=== PATIENT | female | born 1990 | race Caucasian/White ===

== ENCOUNTER → 2016-09-07 | Outpatient (CLI) | payer SELFPAY ==
[2016-09-07 20:21] LABS: Varicella zoster IgG Interp POSITIVE (NEGATIVE); Varicella zoster IgG Result 3.1 AI
== END | disposition home or self-care (01) ==
LOC: LABWHC1 15:18
PROVIDERS: ATTEND Internal Medicine Critical Care Medicine
DX: Z09 Encounter for follow-up examination after completed treatment for conditions other than malignant neoplasm (principal); Z86.19 Personal history of other infectious and parasitic diseases
CPT/HCPCS: 36415; 86787

== ENCOUNTER → 2017-12-06 | Outpatient (CLI) | payer MEDICAID | END | disposition home or self-care (01) | LOC: LABWHC1 12:14 | PROVIDERS: ATTEND Internal Medicine Critical Care Medicine | DX: N91.2 Amenorrhea, unspecified (principal) | CPT/HCPCS: 36415; 84702 ==

== ENCOUNTER 2018-01-23 14:21 | Day surgery (SDC) | payer MEDICAID ==
[2018-01-23] MEDS ORDERED: LACTATED RINGERS 1,000 ML IV ONE ×2 (15:01→17:34)
[2018-01-23] MEDS ORDERED: ONDANSETRON 4 MG/2 ML VIAL IVP ONE (15:18)
[2018-01-23] MEDS ORDERED: DEXAMETHASONE SOD PHOS (MDV) 100 MG/10 ML VIAL IV ONE (15:19)
[2018-01-23] MEDS ORDERED: KETOROLAC 30 MG/ML 1 ML VIAL ONE (16:26)
[2018-01-23] MEDS ORDERED: PROPOFOL 10 MG/ML 20 ML VIAL IV ONE (16:26)
[2018-01-23] MEDS ORDERED: MIDAZOLAM 2 MG/2 ML VIAL ONE (16:26)
[2018-01-23] MEDS ORDERED: METHYLERGONOVINE 0.2 MG/ML 1 ML AMP ONE (16:26)
[2018-01-23] MEDS ORDERED: LIDOCAINE 1% INJ 10MG/ML (20 ML MDV) ONE (16:26)
[2018-01-23] MEDS ORDERED: fentaNYL (PF) 50 MCG/ML 2 ML AMP ONE (16:26)
[2018-01-23] MEDS ORDERED: SILVER NITRATE APPLICATOR 1 EACH STICK..EA. TOPICAL ONE ×2 (16:49)
[2018-01-23 17:08] VITALS: TEMP 97.9
[2018-01-23 17:18] VITALS: RESP 18
--- NOTE | 2018-01-23 17:19 | P.OP ---
Date of Procedure: 01/23/18 Preoperative Diagnosis: missed Ab Postoperative Diagnosis: same Procedure(s) Performed: Suction D&C Anesthesia: MAC Surgeon: Susan Patel Estimated Blood Loss (ml): 10 IV fluids (ml): 500 Urine output (ml): 25 Pathology: other (Uterine contents) Condition: stable Disposition: PACU Indications for Procedure: Missed AB 8 weeks 05/27, Rh+ blood Operative Findings: Moderate amount of products of conception Description of Procedure: Patient was seen in the office today ultrasound confirmed missed AB of 8 weeks/ days. Patient is known Rh+. Patient was discussed options for treatment expectant versus surgical intervention patient elected surgical intervention. Patient presented to the hospital informed consent was obtained in the preoperative area. Patient was taken to the operating suite and general anesthesia was obtained without difficulty by the anesthesia department. She was then prepped and draped in the normal sterile fashion in the dorsal lithotomy position. A red rubber catheter was then used to drain the bladder clear yellow urine. A weighted speculum was placed in the posterior vaginal vault intralipids the cervix is visualized and grasped with a single-tooth tenaculum. The endocervical canal was then dilated to 18-Czech and an 8 mm curved curette was placed through the cervix and toward the endometrial cavity a moderate amount of products of conception was cleared from the endometrial cavity. A sharp curettage was then performed until gritty texture was noted in all 4 quadrants of the endometrial cavity. The curette was placed once again in no further products of conception were noted on suction. Afterwards the single-tooth tenaculum was taken off of the anterior lip of the cervix minimal bleeding was noted no bleeding from the cervix was visualized. Next WERE correct 2 patient tolerated procedure well was taken to the recovery room awake in stable condition.
[2018-01-23 17:58] VITALS: BP 111/75; PULSE 72
[2018-01-24] MEDS ORDERED: Pre Op ABX Message 1 EACH MISC MISCELLANE ONE (05:00)
== END 2018-01-23 18:32 | disposition home or self-care (01) ==
LOC: OR 14:21
PROVIDERS: ATTEND Obstetrics & Gynecology Obstetrics
DX: O02.1 Missed abortion (principal); E28.2 Polycystic ovarian syndrome
CPT/HCPCS: 59820; J2250; J2210; J2405; J2001; J3010; J1885; J1100; J2704; 86850; 86900; 86901; 88305

== ENCOUNTER → 2018-01-23 | Outpatient (CLI) | payer MEDICAID ==
[2018-01-23 12:09] LABS: Basophils % (A) 1 %; Eosinophils # (A) 0.1 k/uL (0-0.7); Eosinophils % (A) 1 %; HCT 39.8 % (34.0-46.0); HGB 13.6 gm/dL (11.4-16.0); Lymphocytes # (A) 1.6 k/uL (1.0-4.8); Lymphocytes % (A) 32 %; MCH 29.4 pg (25.0-35.0); MCHC 34.1 g/dL (31.0-37.0); MCV 86.1 fL (80.0-100.0); Mean Platelet Volume 6.8; Monocytes # (A) 0.3 k/uL (0-1.0); Monocytes % (A) 6 %; Neutrophils # (A) 2.9 k/uL (1.3-7.7); Neutrophils % (A) 58 %; Platelet Count 305 k/uL (150-450); RBC 4.63 m/uL (3.80-5.40); RDW 12.8 % (11.5-15.5); WBC 5.1 k/uL (3.8-10.6)
== END | disposition home or self-care (01) ==
LOC: LABPAT 10:23
PROVIDERS: ATTEND Obstetrics & Gynecology Obstetrics
DX: Z01.812 Encounter for preprocedural laboratory examination (principal); O03.9 Complete or unspecified spontaneous abortion without complication
CPT/HCPCS: 36415; 85025; 86850; 86900; 86901

== ENCOUNTER → 2018-02-23 | Outpatient (CLI) | payer MEDICAID | LOC: LABWHC1 15:26 | PROVIDERS: ATTEND Obstetrics & Gynecology Obstetrics | DX: O02.1 Missed abortion (principal) | CPT/HCPCS: 36415; 84702 ==

== ENCOUNTER → 2018-03-02 | Outpatient (CLI) | payer MEDICAID | LOC: LABWHC1 13:36 | PROVIDERS: ATTEND Internal Medicine Critical Care Medicine | DX: T78.40XA Allergy, unspecified, initial encounter (principal) | CPT/HCPCS: 36415; 82785; 85008 ==

== ENCOUNTER → 2018-11-12 | Outpatient (CLI) | payer OTHER ==
[2018-11-12 13:33] LABS: Glucose 3 Hour, Gest 45 mg/dL
== END | disposition home or self-care (01) ==
LOC: LABWHC1 07:02
PROVIDERS: ATTEND Obstetrics & Gynecology Obstetrics
DX: O99.810 Abnormal glucose complicating pregnancy (principal); Z3A.00 Weeks of gestation of pregnancy not specified
CPT/HCPCS: 36415; 82951; 82952

== ENCOUNTER 2019-01-14 05:59 | Inpatient (IN) | payer OTHER ==
[2019-01-14] MEDS ORDERED: TERBUTALINE 1 MG/ML VIAL SQ PRN (06:04)
[2019-01-14] MEDS ORDERED: LIDOCAINE 0.5% (PF) 5 MG/ML (50 ML SDV) SQ PRN (06:04)
[2019-01-14] MEDS ORDERED: OXYTOCIN 10 UNIT/ML 1 ML VIAL IM PRN (06:04)
[2019-01-14] MEDS ORDERED: CARBOPROST TROMETHAMINE 250 MCG/ML 1 ML AMP IM PRN (06:04)
[2019-01-14] MEDS ORDERED: METHYLERGONOVINE 0.2 MG/ML 1 ML AMP IM PRN (06:04)
[2019-01-14] MEDS: LACTATED RINGERS 1,000 ML IV SCH ×2 (06:13→13:36)
[2019-01-14] MEDS ORDERED: OXYTOCIN 30 UNITS/500 ML NS 30 UNIT in SALINE 1 500ML.BAG IV SCH (06:15)
[2019-01-14 06:23] LABS: Basophils # (A) 0.1 k/uL (0-0.2); Basophils % (A) 1 %; Eosinophils # (A) 0.1 k/uL (0-0.7); Eosinophils % (A) 1 %; HCT 36.4 % (34.0-46.0); HGB 12.5 gm/dL (11.4-16.0); Lymphocytes % (A) 35 %; MCH 29.1 pg (25.0-35.0); MCHC 34.4 g/dL (31.0-37.0); MCV 84.6 fL (80.0-100.0); Mean Platelet Volume 6.2; Monocytes # (A) 0.4 k/uL (0-1.0); Monocytes % (A) 5 %; Neutrophils # (A) 4.8 k/uL (1.3-7.7); Neutrophils % (A) 57 %; Platelet Count 330 k/uL (150-450); RBC 4.31 m/uL (3.80-5.40); RDW 13.2 % (11.5-15.5); WBC 8.5 k/uL (3.8-10.6)
[2019-01-14 06:34] VITALS: BMI 29.0
[2019-01-14] MEDS ORDERED: BUTORPHANOL 1 MG/ML 1 ML VIAL IM PRN (12:33)
[2019-01-14] MEDS ORDERED: SODIUM CHLORIDE 0.9% 100 ML BAG ONE (15:15)
[2019-01-14] MEDS ORDERED: fentaNYL (PF) 50 MCG/ML 5 ML AMP ONE (15:15)
[2019-01-14] MEDS ORDERED: ROPIVACAINE 5MG/ML 20ML VIAL ONE (15:15)
[2019-01-14] MEDS ORDERED: ACETAMINOPHEN TAB 325 MG TAB PO PRN (17:09)
[2019-01-14] MEDS ORDERED: IBUPROFEN 600 MG TAB PO PRN (17:09)
[2019-01-14] MEDS ORDERED: ZOLPIDEM 5 MG TAB PO PRN (17:09)
[2019-01-14] MEDS ORDERED: WITCH HAZEL 1 EACH MED..PAD TOPICAL PRN (17:09)
[2019-01-14] MEDS ORDERED: HYDROcodone/APAP 5-325MG 1 EACH TAB PO PRN (17:09)
[2019-01-14] MEDS ORDERED: BENZOCAINE/MENTHOL SPRAY 1 GM/SPRAY AEROSOL TOPICAL PRN (17:09)
[2019-01-14] MEDS ORDERED: diphenhydrAMINE 25 MG CAP PO PRN (17:09)
[2019-01-14] MEDS ORDERED: LANOLIN CREAM 5 GM TUBE TOPICAL PRN (17:09)
[2019-01-14] MEDS ORDERED: diphenhydrAMINE 50 MG CAP PO PRN (17:09)
[2019-01-14] MEDS ORDERED: diphenhydrAMINE 50 MG/ML 1 ML VIAL IVP PRN ×2 (17:09)
[2019-01-14] MEDS ORDERED: SIMETHICONE 80 MG CHEWABLE PO PRN (17:09)
[2019-01-14] MEDS ORDERED: HYDROCORTISONE 2.5% RECTAL CREAM 30 GM TUBE RECTAL PRN (17:09)
[2019-01-14] MEDS ORDERED: PRENATAL VIT-IRON-FOLIC ACID 1 EACH CAP PO ONE (17:15)
[2019-01-14] MEDS ORDERED: OXYTOCIN 20 UNITS/1000 ML NS 1,000 ML IV SCH (17:15)
--- NOTE | 2019-01-14 17:18 | P.HPOB ---
History of Present Illness H&P Date: 01/14/19 Chief Complaint: IUP @ 40 0/7 weeks Review of Systems Constitutional: Denies chills, Denies fatigue, Denies fever Ears, nose, mouth and throat: Denies headache Cardiovascular: Reports leg edema Respiratory: Denies dyspnea Gastrointestinal: Denies constipation, Denies diarrhea, Denies nausea, Denies vomiting Genitourinary: Reports Past Medical History Additional Past Medical History / Comment(s): POLYCYSTIC OVARY DISEASE History of Any Multi-Drug Resistant Organisms: None Reported Additional Past Surgical History / Comment(s): B/L EAR TUBES X2 Past Anesthesia/Blood Transfusion Reactions: No Reported Reaction Past Psychological History: No Psychological Hx Reported Smoking Status: Never smoker - Past Family History Mother Family Medical History: No Reported History Medications and Allergies Home Medications Medication Instructions Recorded Confirmed Type Pnv No.95/Ferrous Fum/Folic AC 1 tab PO ONCE 01/14/19 01/14/19 History [ Multivitamin Tablet] Allergies Allergy/AdvReac Type Severity Reaction Status Date / Time gluten AdvReac Unknown Verified 01/14/19 06:04 Milk Containing Products AdvReac Unknown Verified 01/14/19 06:04 [Dairy] soy AdvReac Unknown Verified 01/14/19 06:04 wheat AdvReac Unknown Verified 01/14/19 06:04 Exam Osteopathic Statement: *. No significant issues noted on an osteopathic structural exam other than those noted in the History and Physical/Consult. Vital Signs Temp Pulse Resp BP Pulse Ox 01/14/19 06:02 97.3 F L 78 16 125/88 100 Intake and Output 01/14/19 01/14/19 01/14/19 06:59 14:59 22:59 Other: Weight 74.389 kg Targeted physical exam is performed in the same general this is a well-nourished well-developed female in no acute distress, breathing is noted to nonlabored heart has regular rate and rhythm abdomen is gravid and appropriate for gestational age, heart tones returned be category 1 and she is brendan every 3 minutes. On cervical exam she was noted to be 2/80/-2 and amniotomy is performed clear fluid was obtained without difficulty. Results Result Diagrams: 01/14/19 06:10 Assessment and Plan (1) Term Current Visit: Yes Status: Acute Code(s): Z34.90 - ENCNTR FOR SUPRVSN OF NORMAL , UNSP, UNSP TRIMESTER SNOMED Code(s): 40255517 Plan: Patient is admitted to labor and delivery for Pitocin induction of labor. Pitocin started per protocol. Patient does desire epidural anesthesia is notified. Anticipate spontaneous vaginal delivery later today.
--- NOTE | 2019-01-14 17:41 | P.PROBDLV ---
Vaginal Delivery Note - . Vaginal Delivery Note: This is a pleasant 28-year-old 2 para 0010 at 40-0/7 weeks that presented to labor and delivery for induction of labor. Patient was started on Pitocin per hospital protocol. Patient underwent amniotomy and clear fluid was obtained. Patient became uncomfortable requested epidural placement this was placed by the anesthesia without difficulty. Patient progressed to complete began pushing and had a normal spontaneous vaginal delivery of a viable male at 1652, weight of 8 lbs. 1 oz. with Apgars of 9-9 at one and 5 minutes respectively. During delivery a midline episiotomy was performed this was inspected and no extension was noted. After two-minute delay the umbilical cord was doubly clamped and cut and the placenta was delivered spontaneously intact with a three-vessel cord being noted. The midline episiotomy was repaired with 3-0 Rapide in the usual fashion. Uterus was noted to be firm and below the umbilicus at this time lochia was noted to be moderate. Inspection of the patient's laceration after repair noted hemostasis, rectal exam was performed and noted to be intact with no abnormalities EBL 300 cc Patient and tolerated delivery well and are resting comfortably.
[2019-01-14] MEDS: SENNOSIDES-DOCUSATE SODIUM 1 EACH TAB PO SCH (20:29)
[2019-01-15 07:49] LABS: Basophils # (A) 0.2 k/uL (0-0.2); Basophils % (A) 1 %; Eosinophils # (A) 0.1 k/uL (0-0.7); Eosinophils % (A) 1 %; HCT 32.3 % (34.0-46.0); Lymphocytes # (A) 2.9 k/uL (1.0-4.8); Lymphocytes % (A) 21 %; MCH 29.2 pg (25.0-35.0); MCHC 34.2 g/dL (31.0-37.0); MCV 85.4 fL (80.0-100.0); Mean Platelet Volume 7.1; Monocytes # (A) 0.6 k/uL (0-1.0); Monocytes % (A) 4 %; Neutrophils # (A) 9.8 k/uL (1.3-7.7); Neutrophils % (A) 72 %; Platelet Count 274 k/uL (150-450); RBC 3.78 m/uL (3.80-5.40); RDW 13.5 % (11.5-15.5); WBC 13.6 k/uL (3.8-10.6)
[2019-01-15 08:52] VITALS: RESP 16
[2019-01-15] MEDS: SENNOSIDES-DOCUSATE SODIUM 1 EACH TAB PO SCH (08:52)
--- NOTE | 2019-01-15 09:51 | P.DS ---
Providers Date of admission: 01/14/19 05:59 Expected date of discharge: 01/15/19 Attending physician: Susan Patel Primary care physician: Stated None - Discharge Diagnosis(es) (1) Term Current Visit: Yes Status: Acute (2) Status post vaginal delivery Current Visit: Yes Status: Acute Hospital Course: This is a pleasant 28-year-old 2 para 0010 at 40-0/7 weeks that presented to labor and delivery for induction of labor. Patient had routine care that was essentially uncomplicated. Patient was admitted and Pitocin was started per hospital protocol. Patient progressed through labor eventually becoming uncomfortable requesting epidural placement. Epidural was placed by the anesthesia department. She quickly progressed to complete began pushing and had a normal spontaneous vaginal delivery of a viable male infant at 1652, weight of 8 lbs. 1 oz. with Apgars of 9 and 9 at one and 5 minutes respectively. During the delivery a midline episiotomy was performed, as it appeared she was going to tear superiorly toward the urethra. This was repaired in the usual fashion with 3-0 Rapide. Patient's course has been uneventful. On this day #1 she is ambulating and voiding without difficulty. She is tolerating a regular diet wi thout nausea or vomiting. She is breast-feeding. She states her pain is well- controlled. Her lochia is minimal. She denies concerns and would like discharge home at 24 hours if possible. Patient Condition at Discharge: Good Plan - Discharge Summary New Discharge Prescriptions: No Action Pnv No.95/Ferrous Fum/Folic AC [ Multivitamin Tablet] 1 tab PO ONCE Discharge Medication List Pnv No.95/Ferrous Fum/Folic AC [ Multivitamin Tablet] 1 tab PO ONCE 01/14/19 [History] Follow up Appointment(s)/Referral(s): Susan Patel DO [Doctor of Osteopathic Medicine] - 4 Weeks Patient Instructions/Handouts: Vaginal Delivery (DC), Vaginal Delivery (GEN) Discharge Disposition: HOME SELF-CARE
[2019-01-15 17:15] VITALS: BP 120/84; PULSE 89; TEMP 98.4
== END 2019-01-15 17:30 | disposition home or self-care (01) | DRG 807 ==
LOC: 4FBP 05:59
PROVIDERS: ADMIT Obstetrics & Gynecology Obstetrics; ATTEND Obstetrics & Gynecology Obstetrics
PROC: 3E0R3BZ Introduction of Anesthetic Agent into Spinal Canal, Percutaneous Approach (ICD-10-PCS; principal; 2019-01-14)
PROC: 00HU33Z Insertion of Infusion Device into Spinal Canal, Percutaneous Approach (ICD-10-PCS; principal; 2019-01-14)
PROC: 10E0XZZ Delivery of Products of Conception, External Approach (ICD-10-PCS; principal; 2019-01-14)
DX: O80 Encounter for full-term uncomplicated delivery (principal); Z37.0 Single live birth; Z3A.40 40 weeks gestation of pregnancy; E28.2 Polycystic ovarian syndrome; Z98.890 Other specified postprocedural states; Z91.011 Allergy to milk products; Z91.018 Allergy to other foods; Z91.048 Other nonmedicinal substance allergy status
CPT/HCPCS: 85025; 86850; 86900; 86901

== ENCOUNTER → 2020-09-14 | Outpatient (CLI) | payer OTHER | END | disposition home or self-care (01) | LOC: LABWHC1 12:34 | PROVIDERS: ATTEND Internal Medicine Critical Care Medicine | DX: O02.81 Inappropriate change in quantitative human chorionic gonadotropin (hCG) in early pregnancy (principal) | CPT/HCPCS: 36415; 84702 ==

== ENCOUNTER 2020-09-21 17:29 | Emergency (ER) | payer OTHER ==
[2020-09-21 18:01] VITALS: TEMP 97.9
--- NOTE | 2020-09-21 18:05 | ED ---
General Adult HPI - General Chief complaint: Vaginal Bleeding Stated complaint: 10wks preg, cramping/bleeding Time Seen by Provider: 09/21/20 18:03 Source: patient Mode of arrival: ambulatory Limitations: no limitations - History of Present Illness Initial comments: Dictation was produced using [employer] dictation software. please excuse any grammatical, word or spelling errors. Chief Complaint: 30-year-old female presents with bleeding in History of Present Illness: A 22-year-old female she presents with bleeding in . She does have regular OB follow-up with Dr. Stoner. It was towards the end of the day when she called her OB and she was told to come to the emergency department to get an ultrasound. Patient states she's been having some mild bleeding since this morning. She is allegedly 8 weeks based on last menstrual cycle. She has some intermittent mild cramping sensation in her pelvis. She has had a miscarriage before. Denies any medical process. No daily medications. The ROS documented in this emergency department record has been reviewed and confirmed by me. Those systems with pertinent positive or negative responses have been documented in the HPI. All other systems are other negative and/or noncontributory. PHYSICAL EXAM: General Impression: Alert and oriented x3, not in acute distress HEENT: Normocephalic atraumatic, extra-ocular movements intact, pupils equal and reactive to light bilaterally, mucous membranes moist. Cardiovascular: Heart regular rate and rhythm Chest: Able to complete full sentences, no retractions, no tachypnea Abdomen: abdomen soft, non-tender, non-distended, no organomegaly Musculoskeletal: Pulses present and equal in all extremities, no peripheral edema Motor: no focal deficits noted Neurological: CN II-XII grossly intact, no focal motor or sensory deficits noted Skin: Intact with no visualized rashes Psych: Normal affect and mood Pelvic exam: Refused ED course: 30-year-old female presents to the emergency department for vaginal bleeding in . She is allegedly 8 weeks . Vital signs upon arrival are within acceptable limits. Patient refusing pelvic exam. Laboratory evaluation obtained. CBC unremarkable. Coag panel is negative. Metabolic panel is within acceptable limits troponins 2358. Blood type is A+. OB ultrasound shows mild free fluid in the pelvis. And to uterus, irregular cyst on the right ovary measuring 4.5 x 2.9 x 2.2. Left ovary is not measured. There is a complex areas seen measuring 2.3 x 2.1 x 1.7. Patient reevaluated at bedside at 8:20 PM found to be stable medical condition. She denies any pain whatsoever. Patient states she is currently not bleeding vaginally. Patient had a beta Quant drawn one week ago and was 4000. Given decreasing hCG patient likely had a miscarriage. Discussed with patient that she should follow-up with Dr. Stoner her OB as soon as possible. Return precautions discussed. - Related Data Home Medications Medication Instructions Recorded Confirmed Pnv No.95/Ferrous Fum/Folic AC 1 tab PO DAILY 01/14/19 09/21/20 [ Multivitamin Tablet] Allergies Allergy/AdvReac Type Severity Reaction Status Date / Time gluten AdvReac Unknown Verified 09/21/20 20:00 Milk Containing Products AdvReac Unknown Verified 09/21/20 20:00 [Dairy] soy AdvReac Unknown Verified 09/21/20 20:00 wheat AdvReac Unknown Verified 09/21/20 20:00 Review of Systems ROS Statement: Those systems with pertinent positive or pertinent negative responses have been documented in the HPI. ROS Other: All systems not noted in ROS Statement are negative. Past Medical History Additional Past Medical History / Comment(s): POLYCYSTIC OVARY DISEASE History of Any Multi-Drug Resistant Organisms: None Reported Additional Past Surgical History / Comment(s): B/L EAR TUBES X2 Past Anesthesia/Blood Transfusion Reactions: No Reported Reaction Past Psychological History: No Psychological Hx Reported Smoking Status: Never smoker Past Alcohol Use History: None Reported Past Drug Use History: None Reported - Past Family History Mother Family Medical History: No Reported History General Exam Limitations: no limitations Course Vital Signs 09/21/20 09/21/20 17:59 19:08 Temperature 97.9 F Pulse Rate 82 88 Respiratory 16 18 Rate Blood Pressure 117/82 108/79 O2 Sat by Pulse 100 99 Oximetry Medical Decision Making - Lab Data Result diagrams: 09/21/20 18:25 09/21/20 18:25 Lab Results 09/21/20 09/21/20 09/21/20 Range/Units 18:25 18:25 18:25 WBC 7.1 (3.8-10.6) k/uL RBC 4.82 (3.80-5.40) m/uL Hgb 14.2 (11.4-16.0) gm/dL Hct 41.3 (34.0-46.0) % MCV 85.7 (80.0-100.0) fL MCH 29.5 (25.0-35.0) pg MCHC 34.4 (31.0-37.0) g/dL RDW 12.2 (11.5-15.5) % Plt Count 337 (150-450) k/uL MPV 7.0 Neutrophils % 65 % Lymphocytes % 28 % Monocytes % 5 % Eosinophils % 1 % Basophils % 1 % Neutrophils # 4.6 (1.3-7.7) k/uL Lymphocytes # 2.0 (1.0-4.8) k/uL Monocytes # 0.3 (0-1.0) k/uL Eosinophils # 0.1 (0-0.7) k/uL Basophils # 0.1 (0-0.2) k/uL PT 10.3 (9.0-12.0) sec INR 1.0 (<1.2) APTT 22.5 (22.0-30.0) sec Sodium 138 (137-145) mmol/L Potassium 4.0 (3.5-5.1) mmol/L Chloride 102 (98-107) mmol/L Carbon Dioxide 26 (22-30) mmol/L Anion Gap 10 mmol/L BUN 8 (7-17) mg/dL Creatinine 0.57 (0.52-1.04) mg/dL Est GFR (CKD-EPI)AfAm >90 (>60 ml/min/1.73 sqM) Est GFR (CKD-EPI)NonAf >90 (>60 ml/min/1.73 sqM) Glucose 101 H (74-99) mg/dL Calcium 9.9 (8.4-10.2) mg/dL HCG, Quant 2358.8 mIU/mL Blood Type Blood Type Recheck Bld Type Recheck Status Antibody Screen Spec Expiration Date 09/21/20 Range/Units 18:25 WBC (3.8-10.6) k/uL RBC (3.80-5.40) m/uL Hgb (11.4-16.0) gm/dL Hct (34.0-46.0) % MCV (80.0-100.0) fL MCH (25.0-35.0) pg MCHC (31.0-37.0) g/dL RDW (11.5-15.5) % Plt Count (150-450) k/uL MPV Neutrophils % % Lymphocytes % % Monocytes % % Eosinophils % % Basophils % % Neutrophils # (1.3-7.7) k/uL Lymphocytes # (1.0-4.8) k/uL Monocytes # (0-1.0) k/uL Eosinophils # (0-0.7) k/uL Basophils # (0-0.2) k/uL PT (9.0-12.0) sec INR (<1.2) APTT (22.0-30.0) sec Sodium (137-145) mmol/L Potassium (3.5-5.1) mmol/L Chloride (98-107) mmol/L Carbon Dioxide (22-30) mmol/L Anion Gap mmol/L BUN (7-17) mg/dL Creatinine (0.52-1.04) mg/dL Est GFR (CKD-EPI)AfAm (>60 ml/min/1.73 sqM) Est GFR (CKD-EPI)NonAf (>60 ml/min/1.73 sqM) Glucose (74-99) mg/dL Calcium (8.4-10.2) mg/dL HCG, Quant mIU/mL Blood Type A Positive Blood Type Recheck A Pos Bld Type Recheck Status No Antibody Screen NEGATIVE Spec Expiration Date 09/24/20202324 Disposition Clinical Impression: Miscarriage Disposition: HOME SELF-CARE Condition: Fair Instructions (If sedation given, give patient instructions): Miscarriage (ED) Is patient prescribed a controlled substance at d/c from ED?: No Referrals: Susan Patel DO [Doctor of Osteopathic Medicine] - 1-2 days
[2020-09-21 18:34] LABS: Basophils # (A) 0.1 k/uL (0-0.2); Basophils % (A) 1 %; Eosinophils # (A) 0.1 k/uL (0-0.7); Eosinophils % (A) 1 %; HCT 41.3 % (34.0-46.0); HGB 14.2 gm/dL (11.4-16.0); Lymphocytes % (A) 28 %; MCH 29.5 pg (25.0-35.0); MCHC 34.4 g/dL (31.0-37.0); MCV 85.7 fL (80.0-100.0); Monocytes # (A) 0.3 k/uL (0-1.0); Monocytes % (A) 5 %; Neutrophils # (A) 4.6 k/uL (1.3-7.7); Neutrophils % (A) 65 %; Platelet Count 337 k/uL (150-450); RBC 4.82 m/uL (3.80-5.40); RDW 12.2 % (11.5-15.5); WBC 7.1 k/uL (3.8-10.6)
[2020-09-21 18:45] LABS: African American GFR (CKD) >90 (>60 ml/min/1.73 sqM); Anion Gap 10 mmol/L; Blood Urea Nitrogen 8 mg/dL (7-17); Calcium 9.9 mg/dL (8.4-10.2); Carbon Dioxide 26 mmol/L (22-30); Chloride 102 mmol/L (98-107); Glucose 101 mg/dL (74-99); Non-African American GFR(CKD) >90 (>60 ml/min/1.73 sqM); Sodium 138 mmol/L (137-145)
[2020-09-21 18:47] LABS: Partial Thromboplastin Time 22.5 sec (22.0-30.0); Prothrombin Time 10.3 sec (9.0-12.0)
[2020-09-21 19:02] LABS: HCG,Quantitative Serum 2358.8 mIU/mL
[2020-09-21 19:11] VITALS: PULSE 88; RESP 18
--- NOTE | 2020-09-21 20:08 | US ---
EXAMINATION TYPE: Transabdominal DATE OF EXAM: 09/21/2020 7:43 PM COMPARISON: NONE CLINICAL HISTORY: pelvic pain. Pelvic pain. HX PCOS. Hx 1 miscarriage. . EXAM PERFORMED: Transvaginal (TV) and Transabdominal (TA) EXAM MEASUREMENTS: GESTATIONAL AGE / DATING Physician Established: Not yet established. Dates by LMP: (8 weeks/4 days) EDC: 04/29/2021 Dates by First Scan: This is first scan. Dates by Current Scan for: *No IUP seen at this time. Area of uncertainty measured within right ovary as mentioned below. MATERNAL ANATOMY Uterus: 9.9 x 7.0 x 4.9 cm. Heterogeneous, hypoechoic area in cervix, possible fluid: 1.1 x 0.8 x 0.8 cm. Right Ovary: 4.5 x 2.9 x 2.2 cm. Appears slightly enlarged versus upper limits of normal. Complex area seen measuring 2.3 x 2.1 x 1.7 cm. Anechoic component measures: 1.8 x 2.0 x 1.4 cm. Inte rnal echoes are seen within anechoic component. Left Ovary: Not seen at this time. Post CDS / Adnexa: Fluid seen throughout. Presence of free fluid: Fluid seen in CDS, right adnexa, and left adnexa. Presence of corpus luteal cyst: Possible- complex area seen within right ovary as mentioned above [place] other. GESTATION / SURVEY IUP: No IUP seen at this time. Date of LMP: 07/23/2020 Beta HcG (if available): 2,358.8 *Area of uncertainty seen that appears to be within the right ovary. Left ovary not seen. IMPRESSION: There is mild free fluid in the pelvis. Empty uterus. Irregular cyst on the right ovary. Ectopic preg phu not excluded.
[2020-09-21 20:27] VITALS: BP 113/76
== END 2020-09-21 20:26 | disposition home or self-care (01) ==
LOC: EC 17:29
DX: O03.9 Complete or unspecified spontaneous abortion without complication (principal); Z91.011 Allergy to milk products; Z91.018 Allergy to other foods
CPT/HCPCS: 36415; 76801; 76817; 80048; 84702; 85025; 85610; 85730; 86850; 86900; 86901; 99284

== ENCOUNTER → 2020-09-23 | Outpatient (CLI) | payer OTHER | END | disposition home or self-care (01) | LOC: LABWHC1 10:53 | PROVIDERS: ATTEND Obstetrics & Gynecology Obstetrics | DX: O02.1 Missed abortion (principal) | CPT/HCPCS: 36415; 84702 ==

== ENCOUNTER → 2020-09-28 | Outpatient (CLI) | payer OTHER | END | disposition home or self-care (01) | LOC: LABWHC1 14:37 | PROVIDERS: ATTEND Obstetrics & Gynecology Obstetrics | DX: O03.4 Incomplete spontaneous abortion without complication (principal) | CPT/HCPCS: 36415; 84702 ==

== ENCOUNTER → 2021-02-10 | Outpatient (CLI) | payer OTHER | END | disposition home or self-care (01) | LOC: LABWHC1 13:51 | PROVIDERS: ATTEND Obstetrics & Gynecology Obstetrics | DX: N92.5 Other specified irregular menstruation (principal) | CPT/HCPCS: 36415; 84702 ==

== ENCOUNTER → 2021-02-23 | Outpatient (CLI) | payer OTHER | END | disposition home or self-care (01) | LOC: LABWHC1 07:57 | PROVIDERS: ATTEND Internal Medicine Critical Care Medicine | DX: O26.90 Pregnancy related conditions, unspecified, unspecified trimester (principal); Z3A.00 Weeks of gestation of pregnancy not specified | CPT/HCPCS: 36415; 84702 ==

== ENCOUNTER → 2021-04-20 | Outpatient (CLI) | payer OTHER ==
--- NOTE | 2021-04-20 16:41 | US ---
EXAMINATION TYPE: Transabdominal DATE OF EXAM: 04/20/2021 3:43 PM COMPARISON: NONE CLINICAL HISTORY: Z36.2 ENCOUNTER FOR OTHER SCREENING. EXAM PERFORMED: Transabdominal pelvic ultrasound scanning EXAM MEASUREMENTS: GESTATIONAL AGE / DATING Physician Established: Not yet established Dates by LMP: (15 weeks/2 days) EDC: 01-03-21 Dates by First Scan: First scan at this facility Dates by Current Scan for: 12 weeks/3 days) EDC: 10-30-21 MATERNAL ANATOMY Uterus: 12.3 x 7.3 x 9.5cm Right Ovary: not visualized Left Ovary: not visualized Post CDS / Adnexa: wnl Presence of free fluid: no Presence of corpus luteal cyst: no Presence of subchorionic bleed: no GESTATION / SURVEY CRL: 6.0cm (12 weeks/3 days) Yolk Sac (normal less than 6mm): not seen Heart Rate: 172 bpm Rhythm: Normal IUP: Viable IUP Age Appropriate Anatomy Cord Insertion: not seen Limbs: not seen Calvarium: Visualized Date of LMP: 01-03-22 Beta HcG (if available): Not available at this time [place] rump has foreshortened appearance. There is a large cystic area technologist unable to discern where this originates measuring 2. 8 x 2.1 x 2.7cm. IMPRESSION: Exam somewhat limited. Indeterminate cystic lesion is immediately adjacent to the fetus, suspect oligohydramnios is associat ed, high risk ultrasound recommended.
== END | disposition home or self-care (01) ==
LOC: RADUSWWP 15:09
PROVIDERS: ATTEND Internal Medicine Critical Care Medicine
DX: Z36.2 Encounter for other antenatal screening follow-up (principal)
CPT/HCPCS: 76801